=== PATIENT | female | born 2000 | race Two or more races ===

== ENCOUNTER 2018-12-25 02:35 | Observation (INO) | payer OTHER ==
--- NOTE | 2018-12-25 03:23 | ED ---
Abdominal Pain/Female - HPI Summary HPI Summary: A 18 y/o female presents to [facility] with a chief complaint of abdominal pain for over a day. Her pain is in her RLQ and she describes her pain as a stabbing pain. She reports that she was vomiting yesterday and also had diarrhea. She denies any current nausea. Movement aggravates her pain. At triage she rated her pain as a 7/10. She denies any prior surgeries and reports not taking any medication. Her LNMP was the end of November 2018. Vital signs while in room HR : 94bpm, O2 Sat: 98, BP: 109/77 - History of Current Complaint Chief Complaint: EDAbdPain Stated Complaint: "STABBING PAIN IN MY RIGHT SIDE" PER PT Time Seen by Provider: 12/25/18 03:13 Hx Obtained From: Patient Onset/Duration: Sudden Onset, Lasting Hours, Still Present Timing: Constant Severity Initially: Severe Severity Currently: Severe Pain Intensity: 7 Pain Scale Used: 0-10 Numeric Location: Discrete At: RLQ Radiates: No Character: Other: - stabbing Aggravating Factor(s): Movement Alleviating Factor(s): Nothing Associated Signs and Symptoms: Positive: Vomiting - CONTRACT ASSISTANT, Diarrhea. Negative: Fever, Nausea Allergies/Adverse Reactions: Allergies Allergy/AdvReac Type Severity Reaction Status Date / Time No Known Allergies Allergy Verified 12/25/18 02:38 Home Medications: Home Medications NK [No Home Medications Reported] 12/25/18 [History Confirmed 12/25/18] PMH/Surg Hx/FS Hx/Imm Hx Endocrine/Hematology History: Denies: Hx Diabetes Cardiovascular History: Denies: Hx Hypertension Sensory History: Denies: Hx Deafness - Surgical History Surgery Procedure, Year, and Place: none reported Infectious Disease History: No Infectious Disease History: Denies: Traveled Outside the [place] in Last 30 Days - Family History Known Family History: Positive: Diabetes - paternal grandfather Negative: Hypertension - Social History Alcohol Use: Rare Substance Use Type: Reports: Marijuana Smoking Status (MU): Never Smoked Tobacco Review of Systems Negative: Fever Positive: Abdominal Pain - RLQ, Vomiting - CONTRACT ASSISTANT, Diarrhea. Negative: Nausea All Other Systems Reviewed And Are Negative: Yes Physical Exam - Summary Physical Exam Summary: VITAL SIGNS: Reviewed. GENERAL: Patient is a well-developed and nourished FEMALE who is lying comfortable in the stretcher. Patient is not in any acute respiratory distress. HEAD AND FACE: No signs of trauma. No ecchymosis, hematomas or skull depressions. No sinus tenderness. EYES: PERRLA, EOMI x 2, No injected conjunctiva, no nystagmus. EARS: Hearing grossly intact. Ear canals and tympanic membranes are within normal limits. MOUTH: Oropharynx within normal limits. NECK: Supple, trachea is midline, no adenopathy, no JVD, no carotid bruit, no c- spine tenderness, neck with full ROM. CHEST: Symmetric, no tenderness at palpation LUNGS: Clear to auscultation bilaterally. No wheezing or crackles. CVS: Regular rate and rhythm, S1 and S2 present, no murmurs or gallops appreciated. ABDOMEN: RLQ tenderness. No signs of distention. No rebound no guarding, and no masses palpated. Bowel sounds are normal. EXTREMITIES: FROM in all major joints, no edema, no cyanosis or clubbing. NEURO: Alert and oriented x 3. No acute neurological deficits. Speech is normal and follows commands. SKIN: Dry and warm Triage Information Reviewed: Yes Vital Signs On Initial Exam: Initial Vitals Temp Pulse Resp BP Pulse Ox 99.2 F 98 18 118/69 99 12/25/18 02:38 12/25/18 02:38 12/25/18 02:38 12/25/18 02:38 12/25/18 02:38 Vital Signs Reviewed: Yes Diagnostics - Vital Signs Vital Signs Temp Pulse Resp BP Pulse Ox 12/25/18 02:38 99.2 F 98 18 118/69 99 - Laboratory Result Diagrams: 12/25/18 04:05 12/25/18 04:05 Lab Statement: Any lab studies that have been ordered have been reviewed, and results considered in the medical decision making process. Abdominal Pain Fem Course/Dx - Course Course Of Treatment: A 18 y/o female presents to [facility] with a chief complaint of abdominal pain for over a day. Her pain is in her RLQ and she describes her pain as a stabbing pain. She reports that she was vomiting yesterday and also had diarrhea. She denies any current nausea. Movement aggravates her pain. At triage she rated her pain as a 7/10. She denies any prior surgeries and reports not taking any medication. Her LNMP was the end of November 2018. The physical exam revealed RLQ tenderness. Bloodwork, chemistries and urines obtained. Elevated WBC of 21.1 at 04:05. In the ED course the patient was given 65 ml Iohexol (contrast) IV, 15mg Toradol IV, 3.375gm in 100mls @200 mls/hr Zosyn IVPB and Sodium chloride IV. This patient will be signed out from Dr. Bennett to Dr. Mayo upon shift change at 07:00 12/25/[address] abdomen/pelvis. - Diagnoses Provider Diagnoses: Abdominal pain Discharge - Sign-Out/Discharge Documenting (check all that apply): Sign-Out Patient Signing out patient TO: Sugar Mayo - pending CT abdomen/pelvis Patient Received Moderate/Deep Sedation with Procedure: No - Discharge Plan Condition: Stable Referrals: Sheri Shah, ADDING MACHINE OPERATOR [Primary Care Provider] - - Billing Disposition and Condition Condition: STABLE - Attestation Statements Document Initiated by Scribe: Yes Documenting Scribe: Sohail Nguyễn Provider For Whom Scribe is Documenting (Include Credential): Shona Bennett MD Scribe Attestation: Sohail Colby, scribed for Shona Bennett MD on 12/25/18 at 0656. Scribe Documentation Reviewed: Yes Provider Attestation: The documentation as recorded by the Sohail ford accurately reflects the service I personally performed and the decisions made by Birdie mayorga MD Status of Scribe Document: Viewed
[2018-12-25] MEDS ORDERED: NS 0.9% 1000 ML** 1,000 ML IV ONE (03:24)
[2018-12-25] MEDS ORDERED: Ketorolac INJ* 30 MG/ML 1 ML VIAL IV PUSH ONE (03:25)
[2018-12-25 04:14] LABS: Hematocrit 43 % (33-41); Hemoglobin 14.3 g/dL (12.0-16.0); Mean Corpuscular HGB Conc 34 g/dL (31-36); Mean Corpuscular Hemoglobin 29 pg (27-31); Mean Corpuscular Volume 86 fL (80-97); Mean Platelet Volume 8.2 fL (7.4-10.4); Platelet Count 362 10^3/uL (150-450); Red Blood Count 4.95 10^6 /uL (3.70-4.87); Red Cell Distribution Width 13 % (10.5-15); White Blood Count 21.1 10^3/uL (3.5-10.8)
[2018-12-25 04:35] LABS: ALT 18 U/L (7-52); AST 19 U/L (13-39); Albumin 5.3 g/dL (3.2-5.2); Albumin/Globulin Ratio 1.8 (1-3); Alkaline Phosphatase 78 U/L (34-104); Amylase 67 U/L (29-103); Anion Gap 7 mmol/L (2-11); BUN/Creatinine Ratio 9.6 (8-20); Blood Urea Nitrogen 7 mg/dL (6-24); C Reactive Protein 18.06 mg/L (<8.01); CO2 Carbon Dioxide 25 mmol/L (22-32); Calcium 10.3 mg/dL (8.6-10.3); Chloride 103 mmol/L (101-111); EGFR Non-African American 101.6 (>60); Globulin 2.9 g/dL (2-4); Glucose 106 mg/dL (70-100); Magnesium 1.9 mg/dL (1.9-2.7); Potassium 3.4 mmol/L (3.5-5.0); Sodium 135 mmol/L (135-145); Total Protein 8.2 g/dL (6.4-8.9)
[2018-12-25] MEDS ORDERED: ED Piperacillin/Tazobac 3.375 3.375 GM/100 ML PREMIX.SET IVPB ONE (04:38)
[2018-12-25 04:41] LABS: ABS Neutrophils 15.8 10^3/ul (1.5-7.7); HCG Pregnancy < 0.60 mIU/mL
[2018-12-25] MEDS ORDERED: Piperacillin/Tazobac (*) 3.375 GM BAG ONE (04:43)
[2018-12-25 05:05] LABS: ABS Basophils 0 10^3/ul (0-0.2); ABS Eosinophils 2.2 10^3/ul (0-0.6); ABS Lymphocytes 1.7 10^3/ul (1.0-4.8); ABS Monocytes 1.4 10^3/ul (0-0.8); ABS Nucleated RBC 0 10^3/ul; Eosinophil % 10.6 %; Lymphocyte % 8.2 %; Nucleated Red Blood Cells % 0
[2018-12-25] MEDS ORDERED: Iohexol 300* (CONTRAST) 10 ML SDV IV ONE (05:17)
[2018-12-25 05:43] LABS: Urine Appearance Cloudy; Urine Bilirubin Negative (Negative); Urine Blood Negative (Negative); Urine Color Yellow; Urine Glucose Negative (Negative); Urine Ketones Negative (Negative); Urine Nitrite Negative (Negative); Urine Protein Negative (Negative); Urine Specific Gravity 1.003 (1.010-1.030); Urine Urobilinogen Negative (Negative)
--- NOTE | 2018-12-25 07:16 | ED ---
Progress - Progress Note Progress Note: Receiving sign out from Dr. Bennett, pending CT A/P. Pt states she feels a lot better after receiving IV antibiotics. Discussed plan for surgery consult and probably surgery with the pt. Her symptoms began yesterday morning after waking up and she had decreased appetite. The last time she ate was yesterday night at 22:00. LN 12/02/18 and she has normal menstrual periods. She denies any hx of ovarian cysts or pregnancies. Pt denies any vaginal bleeding. She does not take any medications and denies having any diagnoses. Vital signs: HR 93 bpm, BP 117/ 70, 100% O2 sat, temperature 98.5 degrees F. Appearance: Ill-appearing, moderate pain distress, well-nourished Skin: Warm, color reflects adequate perfusion, dry Head: Normal Head/Face inspection, atraumatic Eyes: Conjunctiva clear ENT: Normal inspection Neck: Supple, no nodes, no JVD Respiratory: Lungs clear, normal breath sounds, no respiratory distress Cardio: RRR, No murmur, pulses normal, brisk capillary refill Abdomen: Soft, RLQ tender Bowel sounds: Present Musculoskeletal: Strength Intact/ROM intact, no calf tenderness, no edema. Psychological: Normal Neuro: Alert, muscle tone normal, no focal deficit CT A/P: Appendicitis with faint appendicoliths. ED physician reviewed radiology report. Re-Evaluation - Re-Evaluation First Eval Re-Evaluation Time: 07:13 Change: Improved Comment: Evaluated pt at change of shift. Second Eval Re-Evaluation Time: 08:23 Change: Unchanged Comment: Discussed plan with pt. Pt is pain-free and is not vomiting. She is advised to remain NPO. Course/Dx - Course Course Of Treatment: Pt is a 18 y/o female who presents to the ED c/o abdominal pain and N/V/D. Received sign out from Dr. Bennett, pending CT A/P. A CT A/P revealed appendicitis with faint appendicoliths, 13 mm in length. It is situated behind the psoas and iliacus muscles and is non-ruptured and non- perforated. A physical exam revealed RLQ tenderness. Final dx is acute appendicitis. Pt medications reviewed this visit. Nurses notes reviewed. Allergies noted. She is admitted to Dr. Adame, and she is agreeable with this plan. - Diagnoses Provider Diagnoses: Acute appendicitis - Provider Notifications Discussed Care Of Patient With: [facility] Time Discussed With Above Provider: 07:45 Instructed by Provider To: Other - Spoke to Dr. Acosta from [facility] , who informed of CT A/P results. Pt has an appendicitis with faint appendicoliths, 13 mm in length. It is situated behind the psoas and iliacus muscles and is non-ruptured and non-perforated. At 7:[address] Adame, who accepts pt for admission. The pt may have transition orders and should be NPO. She can be given pain medications and antibiotics as indicated. Discharge - Sign-Out/Discharge Documenting (check all that apply): Patient Departure - Admit, Receiving Sign- Out Receiving patient FROM: Shona Bennett Patient Received Moderate/Deep Sedation with Procedure: No - Discharge Plan Condition: Stable Disposition: ADMITTED TO [facility] Referrals: Sheri Shah, LOOM SETTER FOURDRINIER [Primary Care Provider] - - Attestation Statements Document Initiated by Scribe: Yes Documenting Scribe: Natalie Farooq Provider For Whom Scribe is Documenting (Include Credential): Sugar Mayo MD Scribe Attestation: Natalie Colby, scribed for Sugar Mayo MD on 12/25/18 at 0827.
[2018-12-25] MEDS ORDERED: Morphine 4 MG/ML VIAL (1 ml) 4 MG/ML VIAL IV PRN (08:11)
[2018-12-25] MEDS ORDERED: NS 0.9% 1000 ML** 1,000 ML IV SCH (08:15)
[2018-12-25] MEDS ORDERED: Piperacillin/Tazobac ADVAN(*) 3.375 GM in NS 0.9% 100 ML* 100 ML IVPB SCH (11:00)
--- NOTE | 2018-12-25 12:43 | HP ---
<Lillie Calhoun - Last Filed: 12/25/18 12:37> History of Present Illness - History of Present Illness Reason for Visit: Abdominal pain History of Present Illness: This is a 18 year old female with no significant past medical history who presented to the ED early this morning with one day of abdominal pain. Upon waking up yesterday she had generalized abdominal pain, nausea, vomiting, anorexia and diarrhea. Over the course of the day she remained nauseous, but vomiting and diarrhea subsided, and the pain localized to the right lower quadrant, described as sharp, rated 7/10. The pain was aggravated with movement and not relieved with Tylenol. She ate a light dinner last night and has not eaten since. Her pain has decreased since being in the ED and receiving Toradol and Zosyn. Patient's LMP was November 2018 and she denies any chance that she could be . Lab work is significant for WBC of 21.[address] abdomen/ pelvis revealed enlarged appendix with faint appendicoliths measuring 13mm in diameter with surrounding induration. She denies any medical problems or previous surgeries. - Past Medical History Grav: 0 Para: 0 - Past Surgical History Past Surgical History: None - Past Family History Family History: DM - PGF - Past Social History Occupation: Student Alcohol: Rare Drugs: Marijuana - Rare Review of Systems - Review of Systems Gastrointestinal: Positive: Nausea, Vomiting - Has resolved, Abdominal Pain, Diarrhea - Has resolved - Medications/Allergies Allergies/Adverse Reactions: Allergies Allergy/AdvReac Type Severity Reaction Status Date / Time No Known Allergies Allergy Verified 12/25/18 02:38 Medications: Current Medications Piperacillin Sod/Tazobactam (Sod 3.375 gm/ Sodium Chloride) 100 mls @ 200 mls/ hr IVPB Q6H [facility] Last Admin: 12/25/18 12:01 Dose: 200 mls/hr Morphine Sulfate (Morphine 4 Mg/Ml Vial (1 Ml)) 2 mg IV Q4H PRN PRN Reason: PAIN - MILD Exam - Exam Vital Signs: Vital Signs (72 hours) 12/25/18 12/25/18 12/25/18 02:38 03:16 03:17 Temperature 99.2 F Pulse Rate 98 96 97 Respiratory 18 Rate Blood Pressure 118/69 109/77 (mmHg) O2 Sat by Pulse 99 98 99 Oximetry 12/25/18 12/25/18 12/25/18 03:38 04:12 04:41 Temperature Pulse Rate Respiratory Rate Blood Pressure 108/59 114/87 110/89 (mmHg) O2 Sat by Pulse Oximetry 12/25/18 12/25/18 12/25/18 05:11 05:49 05:50 Temperature 98.9 F Pulse Rate 99 97 Respiratory Rate Blood Pressure 109/73 113/69 (mmHg) O2 Sat by Pulse 98 100 Oximetry 12/25/18 12/25/18 12/25/18 06:00 06:11 06:42 Temperature Pulse Rate 95 100 99 Respiratory Rate Blood Pressure 116/73 115/63 (mmHg) O2 Sat by Pulse 99 98 99 Oximetry 12/25/18 12/25/18 12/25/18 07:00 07:12 07:42 Temperature Pulse Rate 95 92 93 Respiratory Rate Blood Pressure 110/65 114/70 (mmHg) O2 Sat by Pulse 99 99 99 Oximetry 12/25/18 12/25/18 12/25/18 08:00 08:12 08:42 Temperature Pulse Rate 104 101 106 Respiratory Rate Blood Pressure 110/68 104/66 (mmHg) O2 Sat by Pulse 99 98 97 Oximetry 12/25/18 12/25/18 12/25/18 09:00 09:11 10:03 Temperature 98.8 F Pulse Rate 108 110 105 Respiratory 20 Rate Blood Pressure 112/74 109/60 (mmHg) O2 Sat by Pulse 99 98 100 Oximetry 12/25/18 12/25/18 10:04 11:22 Temperature 99.1 F 100.9 F Pulse Rate 110 105 Respiratory 20 16 Rate Blood Pressure 112/74 119/66 (mmHg) O2 Sat by Pulse 98 100 Oximetry General: Alert, Oriented x3, Cooperative, No acute distress HEENT: Atraumatic, PERRLA, EOMI, Mucous membr. moist/pink Lungs: Clear to auscultation, Normal air movement Cardiovascular: Regular rate, Normal S1, Normal S2, No murmurs Abdomen: Normal bowel sounds, Soft - tender to palpation in right lower quadrant , + Rovsing's, + obturator sign, no rebound or guarding Skin: No rashes Neurological: Normal gait, Normal speech, Cranial nerves 3-12 NL Psych/Mental Status: Mental status NL, Mood NL Assessment/Plan - Assessment/Plan Assessment: Acute appendicitis Plan: OR today with Dr. Mecenas for laparoscopic appendectomy NPO Zosyn q6h Morphine 2 mg q4h for pain <Taiwo Adame - Last Filed: 12/25/18 16:44> Review of Systems - Medications/Allergies Medications: Current Medications Dimenhydrinate (Dramamine Iv*) 25 mg IV PUSH ONCE PRN PRN Reason: NAUSEA/VOMITING Fentanyl Citrate (Fentanyl*) 25 mcg IV Q2M PRN PRN Reason: PAIN - MODERATE Hydromorphone HCl (Dilaudid Inj1s*) 0.1 mg IV Q5M PRN PRN Reason: PAIN - SEVERE Piperacillin Sod/Tazobactam (Sod 3.375 gm/ Sodium Chloride) 100 mls @ 200 mls/ hr IVPB Q6H [facility] Last Admin: 12/25/18 12:01 Dose: 200 mls/hr Morphine Sulfate (Morphine 4 Mg/Ml Vial (1 Ml)) 2 mg IV Q4H PRN PRN Reason: PAIN - MILD Naloxone HCl (Narcan*) 0.08 mg IV Q2M PRN PRN Reason: severe induced resp depression Ondansetron HCl (Zofran Inj*) 4 mg IV ONCE PRN PRN Reason: NAUSEA/VOMITING Last Admin: 12/25/18 16:19 Dose: 4 mg Oxycodone/Acetaminophen (Percocet 5/325 Tab*) 1 tab PO ONCE PRN PRN Reason: PAIN - MODERATE Last Admin: 12/25/18 16:21 Dose: 1 tab Exam - Exam Vital Signs: Vital Signs (72 hours) 12/25/18 12/25/18 12/25/18 02:38 03:16 03:17 Temperature 99.2 F Pulse Rate 98 96 97 Respiratory 18 Rate Blood Pressure 118/69 109/77 (mmHg) O2 Sat by Pulse 99 98 99 Oximetry 12/25/18 12/25/18 12/25/18 03:38 04:12 04:41 Temperature Pulse Rate Respiratory Rate Blood Pressure 108/59 114/87 110/89 (mmHg) O2 Sat by Pulse Oximetry 12/25/18 12/25/18 12/25/18 05:11 05:49 05:50 Temperature 98.9 F Pulse Rate 99 97 Respiratory Rate Blood Pressure 109/73 113/69 (mmHg) O2 Sat by Pulse 98 100 Oximetry 12/25/18 12/25/18 12/25/18 06:00 06:11 06:42 Temperature Pulse Rate 95 100 99 Respiratory Rate Blood Pressure 116/73 115/63 (mmHg) O2 Sat by Pulse 99 98 99 Oximetry 12/25/18 12/25/18 12/25/18 07:00 07:12 07:42 Temperature Pulse Rate 95 92 93 Respiratory Rate Blood Pressure 110/65 114/70 (mmHg) O2 Sat by Pulse 99 99 99 Oximetry 12/25/18 12/25/18 12/25/18 08:00 08:12 08:42 Temperature Pulse Rate 104 101 106 Respiratory Rate Blood Pressure 110/68 104/66 (mmHg) O2 Sat by Pulse 99 98 97 Oximetry 12/25/18 12/25/18 12/25/18 09:00 09:11 10:03 Temperature 98.8 F Pulse Rate 108 110 105 Respiratory 20 Rate Blood Pressure 112/74 109/60 (mmHg) O2 Sat by Pulse 99 98 100 Oximetry 12/25/18 12/25/18 10:04 11:22 Temperature 99.1 F 100.9 F Pulse Rate 110 105 Respiratory 20 16 Rate Blood Pressure 112/74 119/66 (mmHg) O2 Sat by Pulse 98 100 Oximetry Assessment/Plan - Assessment/Plan Plan: Attending Surgeon: I have independently interviewed and examined the patient. Agree with findings as above. Plan is for lap appendectomy. Nature of the procedure, indications, risks, benefits, alternatives and option of no treatment discussed. Risks explained including, not limited to: bleeding, infection, pain, scarring, blood clots, pneumonia, visceral injury, need for laparotomy/open surgery, and risks of general anesthesia. Expectations regarding hospital stay and recovery discussed. All questions answered. She stated understanding and agreed to proceed.
[2018-12-25] MEDS ORDERED: Bupivacaine 0.25% W/EPI* 10 ML SDV ONE (12:47)
[2018-12-25] MEDS ORDERED: fentaNYL* 50 MCG/ML 2 ML VIAL (100 MCG VIAL) ONE ×2 (13:14→14:38)
[2018-12-25] MEDS ORDERED: Midazolam* 1 MG/ML 2 ML VIAL (2 MG) ONE (13:14)
[2018-12-25] MEDS ORDERED: Atracurium* 10 MG/ML 10 ML VIAL ONE (13:14)
[2018-12-25] MEDS ORDERED: Propofol* 10 MG/ML 20 ML BTL ONE (13:14)
[2018-12-25] MEDS ORDERED: Dexamethasone IV* 4 MG/ML 1 ML (4 MG) ONE (14:06)
[2018-12-25] MEDS ORDERED: Naloxone* 0.4 MG/ML 1 ML VIAL IV PRN (14:31)
[2018-12-25] MEDS ORDERED: fentaNYL* 50 MCG/ML 2 ML VIAL (100 MCG VIAL) IV PRN (14:31)
[2018-12-25] MEDS ORDERED: DiMENhydriNATE IV* 50 MG/ML VIAL IV PUSH PRN (14:31)
[2018-12-25] MEDS ORDERED: HYDROmorphone INJ1* 1 MG/ML SYRINGE IV PRN (14:31)
[2018-12-25] MEDS ORDERED: Ondansetron INJ* 2 MG/ML VIAL IV PRN (14:31)
[2018-12-25] MEDS ORDERED: oxyCODONE/Acetamin 5/325 MG* TAB PO PRN (14:31)
[2018-12-25] MEDS ORDERED: Ondansetron INJ* 2 MG/ML VIAL ONE ×2 (14:43→16:17)
[2018-12-25] MEDS ORDERED: Ketorolac INJ* 30 MG/ML 1 ML VIAL ONE (14:43)
--- NOTE | 2018-12-25 14:47 | OP ---
Operative Report - Blank - Operative Report Date of Operation: 12/25/18 Note: Brief Operative Note Preop Dx: Acute appendicitis Postop Dx: same Procedure: laparoscopic appendectomy Anesthesia: GET Surgeon: Wendi Lead Mechanical Engineer: GENET Calhoun Fluids: 1600 ml RL EBL: < 20 ml Specimen: appendix Drains: none Findings: dictated
[2018-12-25] MEDS ORDERED: Sugammadex * 200 MG/2 ML VIAL IV PUSH ONE (14:56)
[2018-12-25] MEDS ORDERED: oxyCODONE/Acetamin 5/325 MG* TAB ONE (16:16)
[2018-12-25 17:13] VITALS: BP 107/80
--- NOTE | 2018-12-25 20:58 | OP ---
CC: [facility] * DATE OF OPERATION: 12/25/18 - ROOM #333 DATE OF : 89 SURGEON: Taiwo Adame MD STRAIGHTENING MACHINE FEEDER: JOHNATHAN Hathaway student ANESTHESIOLOGIST: Dr. Kelsey. ANESTHESIA: General endotracheal. PRE-OP DIAGNOSIS: Acute appendicitis. POST-OP DIAGNOSIS: Acute appendicitis. OPERATIVE PROCEDURE: Laparoscopic appendectomy. ESTIMATED BLOOD LOSS: Less than 20 mL. IV FLUIDS: 1.6 L crystalloid. SPECIMEN: Appendix. DRAINS: None. COMPLICATIONS: None. COUNTS: The instrument, needle, and sponge counts were correct. DESCRIPTION OF PROCEDURE: The patient was brought to the operating room and placed on the table supine. Sequential compression devices were placed on both lower extremities and general anesthesia was administered. The patient's abdomen was prepped and draped in usual sterile fashion and she received appropriate intravenous antibiotics. After time-out was performed, local anesthetic was infiltrated into the skin and soft tissue prior to making each incision. Entry into the abdomen was through a transumbilical vertical incision using an open technique. After accessing the peritoneal cavity, carbon dioxide was insufflated to a pressure of 15 mmHg through a 12-mm trocar. Under direct visualization, 5-mm trocars were placed in the suprapubic midline and also in the left lower quadrant. Inspection of the right lower quadrant revealed an appendix that was diving around laterally in a retrocecal position pointing directly into the retroperitoneum. The appendix was difficult to maneuver because it was so adherent in the retroperitoneum. I did mobilize the cecum and ascending colon by dividing lateral attachments so that the appendix could be grasped and elevated. A window was created in the appendix mesentery at the base and the appendix was divided from the cecum using Endo CHAVO stapler with a steiner cartridge. The appendix was then grasped at its stapled end and using a blunt dissection, the appendix was mobilized from its retrocecal position. However, the tip of the appendix was densely adherent and it was not able to be safely manipulated without better visualization; therefore, an additional 5-mm trocar was placed in the right lower quadrant and by positioning the camera differently and utilizing this trocar to aid in dissection, the appendix tip was able to be dissected free from the retroperitoneum. The appendix was noted to be intact without any evidence of gangrene or rupture. The appendix mesentery was then divided with the Endo CHAVO stapler with a steiner cartridge. The appendix was then placed into an endoscopic retrieval bag, retrieved through the umbilical site. After removing the appendix, inspection of the areas of dissection were revealing excellent hemostasis. The ports were removed under direct visualization and carbon dioxide was released from the abdomen. The umbilical wound was closed with 0 Vicryl in a [id number] fashion to approximate the fascia. The skin incisions were closed with 4-0 Monocryl in a subcuticular fashion and then Steri-Strips were applied. The patient tolerated this procedure well. She was extubated uneventfully and transferred to the recovery room in stable condition. [id number]/[facility] #: [id number] [place]
== END 2018-12-25 17:35 | disposition home or self-care (01) ==
LOC: ED 02:35 → SSU 08:38
PROVIDERS: ADMIT Surgery; ATTEND Surgery
DX: K35.80 Unspecified acute appendicitis (principal); R10.31 Right lower quadrant pain; R11.10 Vomiting, unspecified; R19.7 Diarrhea, unspecified
CPT/HCPCS: 36415; 74177; 80053; 81003; 82150; 83690; 83735; 84702; 85025; 86140; 88304; 96361; 96372; 96374; 96375; 99285; A9270-GY; C1776; G0378; J1100; J1885; J2250; J2405; J2543; J2704; J3010; Q9967